=== PATIENT | female | born 1995 | race Caucasian/White ===

== ENCOUNTER → 2017-10-01 | Outpatient (CLI) | payer BC ==
--- NOTE | 2017-10-01 10:11 | US ---
EXAMINATION TYPE: US abdomen comp/pelvis limited DATE OF EXAM: 10/01/2017 COMPARISON: NONE CLINICAL HISTORY: Abdominal Pain R10.84 Nausea R11.0. Generalized abdominal pain. NPO. Hx of multip le UTI's. EXAM MEASUREMENTS: Liver Length: 13.3 cm Gallbladder Wall: 0.2 cm CHD: 0.2 cm Spleen: 9.1 cm Right Kidney: 10.3 x 4.9 x 4.2 cm Left Kidney: 9.5 x 3.7 x 4.6 cm Pancreas: Tail obscured by bowel gas Liver: wnl Gallbladder: wnl CHD: wnl Spleen: wnl Right Kidney: medial anechoic lesion at hilum - 1.7 x 1.7 cm, probable renal sinus cyst . Left Kidney: wnl Upper IVC: wnl Abd Aorta: no AAA identified Bladder: distended, wnl as visualized Bilateral Jets Seen IMPRESSION: 1. No evidence of hydronephrosis or nephrolithiasis. Urinary bladder is unremarkable. 2. Probable 1.7 cm right renal sinus cyst.
== END | disposition home or self-care (01) ==
LOC: RADUSWWP 09:05
PROVIDERS: ATTEND Family Medicine
DX: R10.84 Generalized abdominal pain (principal); R11.0 Nausea
CPT/HCPCS: 76700; 76857

== ENCOUNTER → 2020-06-30 | Outpatient (CLI) | payer OTHER | END | disposition home or self-care (01) | LOC: LABWHC1 11:37 | PROVIDERS: ATTEND Family Medicine | DX: Z20.828 Contact with and (suspected) exposure to other viral communicable diseases (principal) | CPT/HCPCS: U0003; C9803 ==

== ENCOUNTER 2022-09-17 16:49 | Emergency (ER) | payer BC, OTHER ==
[2022-09-17 17:17] VITALS: TEMP 97.8
--- NOTE | 2022-09-17 20:00 | XR ---
EXAMINATION TYPE: XR abdomen complete w decub DATE OF EXAM: 09/17/2022 7:12 PM INDICATION: Patient age:Female; 27 years old; Reason for study: Abd pain; COMPARISON: None. TECHNIQUE: Two views of the abdomen were obtained. FINDINGS: The bowel gas pattern is nonspecific without dilated loops of small or large bowel. There i s no evidence for organomegaly or pneumoperitoneum. The osseous structures are intact. No abnormal calcifications are present. Fecal material and gas are demonstrated throughout the colon and rectum. IMPRESSION: Nonspecific bowel gas pattern without radiographic evidence for acute process.
[2022-09-17 20:03] LABS: ALT 20 U/L (4-34); AST 24 U/L (14-36); African American GFR (CKD) >90 (>60 ml/min/1.73 sqM); Albumin 5.1 g/dL (3.5-5.0); Alkaline Phosphatase 80 U/L (38-126); Anion Gap 11 mmol/L; Blood Urea Nitrogen 10 mg/dL (7-17); Calcium 9.9 mg/dL (8.4-10.2); Carbon Dioxide 26 mmol/L (22-30); Chloride 103 mmol/L (98-107); Glucose 81 mg/dL (74-99); Lipase 133 U/L (23-300); Non-African American GFR(CKD) >90 (>60 ml/min/1.73 sqM); Sodium 140 mmol/L (137-145); Total Bilirubin 0.4 mg/dL (0.2-1.3); Total Protein 8.4 g/dL (6.3-8.2)
[2022-09-17 20:04] LABS: Basophils % (A) 1 %; Eosinophils # (A) 0.1 k/uL (0-0.7); Eosinophils % (A) 2 %; HCT 47.9 % (34.0-46.0); HGB 16.1 gm/dL (11.4-16.0); Lymphocytes # (A) 0.6 k/uL (1.0-4.8); Lymphocytes % (A) 11 %; MCH 28.7 pg (25.0-35.0); MCHC 33.7 g/dL (31.0-37.0); MCV 85.1 fL (80.0-100.0); Monocytes # (A) 0.3 k/uL (0-1.0); Monocytes % (A) 5 %; Neutrophils # (A) 4.6 k/uL (1.3-7.7); Neutrophils % (A) 80 %; Platelet Count 155 k/uL (150-450); RBC 5.63 m/uL (3.80-5.40); RDW 12.2 % (11.5-15.5); WBC 5.7 k/uL (3.8-10.6)
[2022-09-17 20:08] LABS: Appearance,Urine Clear (Clear); Bilirubin,Urine Negative (Negative); Blood,Urine Negative (Negative); Color,Urine Light Yellow; Glucose,Urine (UA) Negative (Negative); Ketones,Urine Negative (Negative); Leukocyte Esterase,Urine Negative (Negative); Nitrite,Urine Negative (Negative); PH, Urine 5.5 (5.0-8.0); Protein,Urine Negative (Negative); Specific Gravity,Urine 1.017 (1.001-1.035); Urobilinogen,Urine <2.0 mg/dL (<2.0)
--- NOTE | 2022-09-17 20:48 | ED ---
General Adult HPI - General Chief complaint: Abdominal Pain Stated complaint: abd pain, weakness Time Seen by Provider: 09/17/22 17:57 Source: patient Mode of arrival: ambulatory Limitations: no limitations - History of Present Illness Initial comments: This is a 27-year-old female that presents emergency department for abdominal pain. The patient stated that she has had epigastric abdominal pain of the last 2 days associated with diarrhea and some mild nausea. The patient stated that this pain is intermittent and does not radiate. The patient is a past medical history including depression and anxiety and did state that she is increasingly anxious of the last several days. The patient did state that she did eat at a restaurant however no else had any similar episodes or symptoms. The patient stated that she denied of any increased nausea or diarrhea at this time however. The patient was resting in bed comfortably and denied any nausea, vomiting, fevers and chills. - Related Data Home Medications Medication Instructions Recorded Confirmed Desvenlafaxine Succinate 25 mg PO DAILY 09/17/22 09/17/22 [Desvenlafaxine Succinate ER] Ibuprofen [Motrin] 400 mg PO Q4H PRN 09/17/22 09/17/22 Allergies Allergy/AdvReac Type Severity Reaction Status Date / Time No Known Allergies Allergy Verified 09/17/22 20:18 Review of Systems ROS Statement: Those systems with pertinent positive or pertinent negative responses have been documented in the HPI. ROS Other: All systems not noted in ROS Statement are negative. Past Medical History Past Medical History: No Reported History History of Any Multi-Drug Resistant Organisms: None Reported Additional Past Surgical History / Comment(s): WISDOM TEETH Past Anesthesia/Blood Transfusion Reactions: No Reported Reaction Past Psychological History: No Psychological Hx Reported Smoking Status: Never smoker Past Alcohol Use History: Occasional Past Drug Use History: Marijuana - Past Family History Mother Family Medical History: No Reported History General Exam Limitations: no limitations General appearance: alert, in no apparent distress Head exam: Present: atraumatic, normocephalic Eye exam: Present: normal appearance, PERRL Pupils: Present: normal accommodation ENT exam: Present: normal exam, normal oropharynx, mucous membranes moist Neck exam: Present: normal inspection, full ROM Respiratory exam: Present: normal lung sounds bilaterally Cardiovascular Exam: Present: regular rate, normal rhythm, normal heart sounds GI/Abdominal exam: Present: soft, tenderness (Mild tenderness to palpation noted to the epigastric region), normal bowel sounds Extremities exam: Present: normal inspection, full ROM Back exam: Present: normal inspection, full ROM Neurological exam: Present: alert, oriented X3, CN II-XII intact Psychiatric exam: Present: normal affect, normal mood Skin exam: Present: warm, dry Course Vital Signs 09/17/22 09/17/22 17:13 21:49 Temperature 97.8 F Pulse Rate 97 68 Respiratory 20 18 Rate Blood Pressure 123/79 109/71 O2 Sat by Pulse 99 98 Oximetry Medical Decision Making - Medical Decision Making The patient was seen and evaluated emergency department. Physical exam, the patient was resting in bed without any acute distress. Vital signs admission were stable. Laboratory workup and acute elbow series x-ray was obtained. The patient did not require a computed tomography scan at this time as the patient denied of any acute abdominal pain. Laboratory workup was obtained and was within normal limits. Acute abdominal series x-ray was obtained and was interpreted by myself showing no acute intra-abdominal process. On reevaluation, the patient stated that her symptoms were under control and she did not require any pain medications at this time. The patient was advised to follow-up with her primary care physician and to take [id number] medications including Pepto-Bismol, Maalox and Pepcid for her epigastric abdominal pain that could be secondary to a ulcer. The patient was advised to continue to monitor symptoms and to report back to the emergency department if they became acutely worse. The patient was agreeable to this and all of her questions were answered. The patient was discharged home in stable condition. - Lab Data Result diagrams: 09/17/22 19:30 09/17/22 19:30 Lab Results 09/17/22 09/17/22 09/17/22 Range/Units 19:30 19:30 19:30 WBC 5.7 (3.8-10.6) k/uL RBC 5.63 H (3.80-5.40) m/uL Hgb 16.1 H (11.4-16.0) gm/dL Hct 47.9 H (34.0-46.0) % MCV 85.1 (80.0-100.0) fL MCH 28.7 (25.0-35.0) pg MCHC 33.7 (31.0-37.0) g/dL RDW 12.2 (11.5-15.5) % Plt Count 155 (150-450) k/uL MPV 9.0 Neutrophils % 80 % Lymphocytes % 11 % Monocytes % 5 % Eosinophils % 2 % Basophils % 1 % Neutrophils # 4.6 (1.3-7.7) k/uL Lymphocytes # 0.6 L (1.0-4.8) k/uL Monocytes # 0.3 (0-1.0) k/uL Eosinophils # 0.1 (0-0.7) k/uL Basophils # 0.0 (0-0.2) k/uL Sodium 140 (137-145) mmol/L Potassium 4.0 (3.5-5.1) mmol/L Chloride 103 (98-107) mmol/L Carbon Dioxide 26 (22-30) mmol/L Anion Gap 11 mmol/L BUN 10 (7-17) mg/dL Creatinine 0.59 (0.52-1.04) mg/dL Est GFR (CKD-EPI)AfAm >90 (>60 ml/min/1.73 sqM) Est GFR (CKD-EPI)NonAf >90 (>60 ml/min/1.73 sqM) Glucose 81 (74-99) mg/dL Calcium 9.9 (8.4-10.2) mg/dL Total Bilirubin 0.4 (0.2-1.3) mg/dL AST 24 (14-36) U/L ALT 20 (4-34) U/L Alkaline Phosphatase 80 (38-126) U/L Total Protein 8.4 H (6.3-8.2) g/dL Albumin 5.1 H (3.5-5.0) g/dL Lipase 133 (23-300) U/L Urine Color Light Yellow Urine Appearance Clear (Clear) Urine pH 5.5 (5.0-8.0) Ur Specific [place] 1.017 (1.001-1.035) Urine Protein Negative (Negative) Urine Glucose (UA) Negative (Negative) Urine Ketones Negative (Negative) Urine Blood Negative (Negative) Urine Nitrite Negative (Negative) Urine Bilirubin Negative (Negative) Urine Urobilinogen <2.0 (<2.0) mg/dL Ur Leukocyte Esterase Negative (Negative) Disposition Clinical Impression: Abdominal pain Disposition: HOME SELF-CARE Condition: Stable Instructions (If sedation given, give patient instructions): Abdominal Pain (ED) Is patient prescribed a controlled substance at d/c from ED?: No Referrals: Surjit Rodriguez DO [Primary Care Provider] - 1-2 days Time of Disposition: 20:45
[2022-09-17 21:53] VITALS: BP 109/71; PULSE 68; RESP 18
== END 2022-09-17 22:22 | disposition home or self-care (01) ==
LOC: EC 16:49
DX: R10.9 Unspecified abdominal pain (principal); F12.90 Cannabis use, unspecified, uncomplicated
CPT/HCPCS: 36415; 74021; 80053; 81003; 83690; 85025; 99284